=== PATIENT | male | born 1955 | race African-American/Black ===

== ENCOUNTER 2020-06-18 17:14 | Observation (INO) | payer BC ==
[2020-06-18 18:09] LABS: Blood Gas Oxyhemoglobin 89.8 % (94-97); Blood O2 Saturation 92.5 % (92-98.5)
[2020-06-18 18:36] LABS: Urine Blood Trace-intact (Negative); Urine Glucose 2+ (Negative); Urine Protein Negative (Negative); Urine Specific Gravity <=1.005 (1.005-1.030); Urine pH 5.5 (5.0-7.0)
[2020-06-18] MEDS ORDERED: NA CHLORIDE 0.9% 1,000 ML ONE ×2 (19:05→21:14)
[2020-06-18 19:36] LABS: Absolute Lymphocytes (CBC) 2.2 K/uL (0.7-4.9); Basophils % 0.6 % (0-1.3); Lymphocytes % 23.8 % (15.3-44.8); MPV 10.5 fL (7.6-11.3)
[2020-06-18 19:53] LABS: ALT/SGPT 21 U/L (12-78); AST/SGOT 16 U/L (15-37); Albumin 3.6 g/dL (3.4-5.0); Alkaline Phosphatase 112 U/L (45-117); BUN Blood Urea Nitrogen 21 mg/dL (7-18); Bicarbonate 27 mmol/L (21-32); Bilirubin Direct 0.2 mg/dL (0-0.2); Bilirubin Total 0.6 mg/dL (0.2-1.0); Lipase 361 U/L (73-393); Potassium 4.6 mmol/L (3.5-5.1); Protein, Total 8.2 g/dL (6.4-8.2); Sodium Level 127 mmol/L (136-145)
[2020-06-18 19:55] LABS: Glucose Level 878 mg/dL (74-106)
[2020-06-18] MEDS ORDERED: DIAZEPAM 10 MG/2 ML INJ SYRINGE ONE (20:42)
--- NOTE | 2020-06-18 20:43 | EDPHYS ---
Physician Documentation [facility] Name: Jocy Burton Age: 64 yrs Sex: Male : 1955 Arrival Date: 06/18/2020 Time: 17:18 Bed 18 Private MD: ED Physician aMri Garcia HPI: 06/18 17:45 This 64 yrs old Black Male presents to ER via Ambulatory with complaints of Urinary jmm Frequency. 17:45 The patient or guardian reports polyuria. Onset: The symptoms/episode began/occurred jmm gradually, 5 day(s) ago. Associated signs and symptoms: Pertinent positives:. Associated signs and symptoms: Pertinent negatives: shortness of breath, vomiting. Modifying factors: The patient symptoms are alleviated by nothing, the patient symptoms are aggravated by nothing. The patient has not experienced similar symptoms in the past. Historical: - Allergies: 17:33 No Known Allergies; ll1 - PMHx: 17:38 Hypertension; ll1 - PSHx: 17:38 hand sx; ll1 - Immunization history:: Flu vaccine is not up to date. - Social history:: Smoking status: unknown. ROS: 17:45 Constitutional: Negative for fever, chills, and weight loss, Cardiovascular: Negative jmm for chest pain, palpitations, and edema, Respiratory: Negative for shortness of breath, cough, wheezing, and pleuritic chest pain. 17:45 Neuro: Positive for weakness. 17:45 Endocrine: Positive for polyuria. 17:45 All other systems are negative. Exam: 17:45 Constitutional: This is a well developed, well nourished patient who is awake, alert, jmm and in no acute distress. Head/Face: atraumatic. Eyes: EOMI, no conjunctival erythema appreciated ENT: Moist Mucus Membranes Neck: Trachea midline, Supple Chest/axilla: Normal chest wall appearance and motion. Cardiovascular: Regular rate and rhythm. No edema appreciated Respiratory: Normal respirations, no respiratory distress appreciated Abdomen/GI: Non distended, soft Back: Normal ROM Skin: General appearance color normal MS/ Extremity: Moves all extremities, no obvious deformities appreciated, no edema noted to the lower extremities Neuro: Awake and alert, normal gait Psych: Behavior is normal, Mood is normal, Patient is cooperative and pleasant Vital Signs: 17:33 BP 170 / 104; Pulse 105; Resp 17; Temp 98.3; Pulse Ox 98% ; Weight 81.65 kg; Height 5 ll1 ft. 7 in. (170.18 cm); Pain 0/10; 19:30 BP 124 / 70; Pulse 97; Resp 16; Pulse Ox 96% on R/A; zb 20:41 BP 127 / 78; Pulse 97; Resp 14; Pulse Ox 99% on R/A; zb 22:20 BP 140 / 81; Pulse 100; Resp 18; Pulse Ox 95% on R/A; zb 23:42 BP 148 / 86; Pulse 97; Resp 16; Pulse Ox 98% on R/A; zb 17:33 Body Mass Index 28.19 (81.65 kg, 170.18 cm) ll1 MDM: 17:47 Patient medically screened. [facility] 20:40 Data reviewed: vital signs, nurses notes. Counseling: I had a detailed discussion with marilee the patient and/or guardian regarding: the historical points, exam findings, and any diagnostic results supporting the discharge/admit diagnosis, lab results, the need for outpatient follow up, to return to the emergency department if symptoms worsen or persist or if there are any questions or concerns that arise at home. ED course: Patient is alert and non toxic in appearance in the ED. I discussed the patient with ANDER Desai whom accepted the patient to Vicente Edwards's service. . 06/18 17:45 Order name: Basic Metabolic Panel [facility] 06/18 17:45 Order name: CBC with Diff [facility] 06/18 17:45 Order name: Hepatic Function [facility] 06/18 17:45 Order name: Lipase [facility] 06/18 17:46 Order name: Basic Metabolic Panel; Complete Time: 20:12 [facility] 06/18 17:46 Order name: CBC with Automated Diff; Complete Time: 20:20 [facility] 06/18 17:46 Order name: Liver (Hepatic) Function; Complete Time: 20:20 [facility] 06/18 17:46 Order name: Lipase; Complete Time: 20:20 [facility] 06/18 17:46 Order name: Acetone, Serum; Complete Time: 20:20 [facility] 06/18 17:47 Order name: ABG [facility] 06/18 17:47 Order name: ABG Arterial Blood Gas; Complete Time: 19:00 [facility] 06/18 17:55 Order name: Glucose, Ancillary Testing; Complete Time: 18:26 [facility] 06/18 18:36 Order name: Urine Dipstick-Ancillary; Complete Time: 19:00 [facility] 06/18 17:45 Order name: IV Saline Lock; Complete Time: 18:42 [facility] 06/18 17:45 Order name: Labs collected and sent; Complete Time: 18:42 [facility] 06/18 17:45 Order name: Urine Dipstick-Ancillary (obtain specimen); Complete Time: 18:43 [facility] 06/18 21:56 Order name: SARS-COV-2 RT PCR; Complete Time: 15:11 [facility] 06/18 22:01 Order name: Glucose, Ancillary Testing; Complete Time: 23:06 [facility] 06/18 23:22 Order name: Glucose, Ancillary Testing; Complete Time: 15:11 EDMS Administered Medications: 18:50 Drug: NS 0.9% 1000 ml Route: IV; Rate: 1 bolus; Site: left antecubital; zb 19:30 Follow up: Response: No adverse reaction; No change in condition; IV Status: Completed zb infusion; IV Intake: 1900ml 20:27 Drug: Valium (diazepam) 2 mg {Note: rass 0.} Route: IVP; Site: left antecubital; zb 22:38 Follow up: Response: No adverse reaction; No change in condition; Pain is decreased; zb RASS: Alert and Calm (0) 21:02 Drug: Insulin Regular Human 5 units {Co-Signature: rr5 (Vicente Noriega RN).} Route: IVP; zb Site: left antecubital; 23:40 Follow up: Response: No adverse reaction; Marked relief of symptoms; Blood sugar is zb lowered 21:05 Drug: NS 0.9% 1000 ml Route: IV; Rate: 1 bolus; Site: left antecubital; zb 22:43 Follow up: Response: No adverse reaction; Marked relief of symptoms; IV Status: zb Completed infusion; IV Intake: 1000ml 22:25 Drug: LanTUS 16 units Route: Sub-Q; Site: right lower abdomen; zb 06/19 00:20 Follow up: Response: No adverse reaction zb 06/18 22:25 Drug: Insulin Regular Human 5 units {Co-Signature: rr5 (Vicente Noriega RN).} Route: IVP; zb Site: left antecubital; 06/19 00:20 Follow up: Response: No adverse reaction; Blood sugar is lowered zb Disposition: 06/18/20 20:43 Hospitalization ordered by Vicente Edwards for Observation. Preliminary diagnosis are Hyperglycemia, unspecified, Hypo-osmolality and hyponatremia, Acute Kidney Injury. - Bed requested for Telemetry/MedSurg (observation). - Status is Observation. zb - Condition is Stable. - Problem is new. - Symptoms are unchanged. Addendum: 06/21/2020 15:41 Co-signature as Attending Physician, Mari Garcia MD. m a2 Signatures: Dispatcher [employer] EDSD Karla Askew RN RN mw Bobby Degroot PA PA [facility] John Hamilton, PBX INSTALLER-C PBX INSTALLER-[facility] Mari Garcia MD MD ma2 Reva Juárez RN RN ll1 Yeni Flynn RN RN zb Vicente Noriega RN rr5 Corrections: (The following items were deleted from the chart) 06/18 17:38 17:33 PSHx: None; ll1 ll1 17:38 17:33 Social history: Smoking status: Patient denies any tobacco usage or history of. 1 1 21:13 20:59 CORONAVIRUS+MR.LAB.BRZ ordered. [facility] EDSD 22:23 20:43 Hospitalization Ordered by Vicente Edwards MD for Observation. Preliminary mw diagnosis is Hyperglycemia, unspecified; Hypo-osmolality and hyponatremia; Acute Kidney Injury. Bed requested for Telemetry/MedSurg (observation). Status is Observation. Condition is Stable. Problem is new. Symptoms are unchanged. [facility] 23:44 22:23 06/18/2020 20:43 Hospitalization Ordered by Vicente Edwards MD for Observation. zb Preliminary diagnosis is Hyperglycemia, unspecified; Hypo-osmolality and hyponatremia; Acute Kidney Injury. Bed requested for Telemetry/MedSurg (observation). Status is Observation. Condition is Stable. Problem is new. Symptoms are unchanged. mw
--- NOTE | 2020-06-18 20:43 | ER ---
Nurse's Notes [facility] Name: Jocy Burton Age: 64 yrs Sex: Male : 1955 Arrival Date: 06/18/2020 Time: 17:18 Bed 18 Private MD: Diagnosis: Hyperglycemia, unspecified;Hypo-osmolality and hyponatremia;Acute Kidney Injury Presentation: 06/18 17:33 Chief complaint: Patient states: Frequent thirst and frequent urination for 5 days. No ll1 fever or pain. Coronavirus screen: Client denies travel out of the [place] in the last 14 days. At this time, the client does not indicate any symptoms associated with coronavirus-19. Ebola Screen: Patient denies travel to an Ebola-affected area in the 21 days before illness onset. Initial Sepsis Screen: Does the patient meet any 2 criteria? HR > 90 bpm. No. Patient's initial sepsis screen is negative. Does the patient have a suspected source of infection? Yes: Dysuria/Frequency/Urgency/UTI. Risk Assessment: Do you want to hurt yourself or someone else? Patient reports no desire to harm self or others. Onset of symptoms was June 14, 2020. 17:33 Method Of Arrival: Ambulatory ll1 17:33 Acuity: CINDY 2 ll1 17:42 Chief complaint: Patient states: Fingerstick reads HI. ll1 Historical: - Allergies: 17:33 No Known Allergies; ll1 - PMHx: 17:38 Hypertension; ll1 - PSHx: 17:38 hand sx; ll1 - Immunization history:: Flu vaccine is not up to date. - Social history:: Smoking status: unknown. Screenin:40 Abuse screen: Denies threats or abuse. Denies injuries from another. Nutritional zb screening: No deficits noted. Tuberculosis screening: No symptoms or risk factors identified. Fall Risk None identified. Assessment: 18:00 General: Appears in no apparent distress. comfortable, Behavior is calm, cooperative, zb appropriate for age, Reports fatigue for >3 days. Pain: Denies pain. Neuro: Level of Consciousness is awake, alert, obeys commands, Oriented to person, place, time, situation. Cardiovascular: Capillary refill < 3 seconds Patient's skin is warm and dry. Pulses are all present. Respiratory: Airway is patent Respiratory effort is even, unlabored, Respiratory pattern is regular, symmetrical. GI: Abdomen is flat, Bowel sounds present X 4 quads. Reports cramping, Patient currently denies intolerance of fluids, intolerance of food, nausea, vomiting. : Reports urgency, urinary frequency. Derm: Skin is intact, Skin is dry, Skin is normal, Skin temperature is warm. Musculoskeletal: Range of motion: intact in all extremities. 19:56 Reassessment: glucose 878 abdon from laboratory called, ED provider aware. rr5 20:10 Reassessment: Patient appears in no apparent distress at this time. Patient and/or zb family updated on plan of care and expected duration. Pain level reassessed. Patient is alert, oriented x 3, equal unlabored respirations, skin warm/dry/pink. ECP at bedside. 21:00 Reassessment: Patient appears in no apparent distress at this time. Patient and/or zb family updated on plan of care and expected duration. Pain level reassessed. Patient is alert, oriented x 3, equal unlabored respirations, skin warm/dry/pink. 22:00 Reassessment: Patient appears in no apparent distress at this time. Patient and/or zb family updated on plan of care and expected duration. Pain level reassessed. Patient is alert, oriented x 3, equal unlabored respirations, skin warm/dry/pink. IV fluid infusing. 23:25 Reassessment: Patient appears in no apparent distress at this time. Patient and/or zb family updated on plan of care and expected duration. Pain level reassessed. Patient is alert, oriented x 3, equal unlabored respirations, skin warm/dry/pink. current sugar 389 notified hospitalist. Vital Signs: 17:33 BP 170 / 104; Pulse 105; Resp 17; Temp 98.3; Pulse Ox 98% ; Weight 81.65 kg; Height 5 ll1 ft. 7 in. (170.18 cm); Pain 0/10; 19:30 BP 124 / 70; Pulse 97; Resp 16; Pulse Ox 96% on R/A; zb 20:41 BP 127 / 78; Pulse 97; Resp 14; Pulse Ox 99% on R/A; zb 22:20 BP 140 / 81; Pulse 100; Resp 18; Pulse Ox 95% on R/A; zb 23:42 BP 148 / 86; Pulse 97; Resp 16; Pulse Ox 98% on R/A; zb 17:33 Body Mass Index 28.19 (81.65 kg, 170.18 cm) ll1 ED Course: 17:18 Patient arrived in ED. ds1 17:33 Arm band placed on. ll1 17:37 Triage completed. 1 17:45 Bobby Degroot PA is PHCP. [facility] 17:45 Mari Garcia MD is Attending Physician. [facility] 17:56 Yeni Flynn RN is Primary Nurse. zb 18:37 Inserted saline lock: 20 gauge in left antecubital area, using aseptic technique. Blood dh4 collected. 20:40 Patient has correct armband on for positive identification. Placed in gown. Bed in low zb position. Call light in reach. Side rails up X 1. Pulse ox on. NIBP on. Door closed. Noise minimized. 20:42 Vicente Edwards MD is Hospitalizing Provider. [facility] 23:40 No provider procedures requiring assistance completed. Patient admitted, IV remains in zb place. Administered Medications: 18:50 Drug: NS 0.9% 1000 ml Route: IV; Rate: 1 bolus; Site: left antecubital; zb 19:30 Follow up: Response: No adverse reaction; No change in condition; IV Status: Completed zb infusion; IV Intake: 1900ml 20:27 Drug: Valium (diazepam) 2 mg {Note: rass 0.} Route: IVP; Site: left antecubital; zb 22:38 Follow up: Response: No adverse reaction; No change in condition; Pain is decreased; zb RASS: Alert and Calm (0) 21:02 Drug: Insulin Regular Human 5 units {Co-Signature: rr5 (Vicente Noriega RN).} Route: IVP; zb Site: left antecubital; 23:40 Follow up: Response: No adverse reaction; Marked relief of symptoms; Blood sugar is zb lowered 21:05 Drug: NS 0.9% 1000 ml Route: IV; Rate: 1 bolus; Site: left antecubital; zb 22:43 Follow up: Response: No adverse reaction; Marked relief of symptoms; IV Status: zb Completed infusion; IV Intake: 1000ml 22:25 Drug: LanTUS 16 units Route: Sub-Q; Site: right lower abdomen; zb 06/19 00:20 Follow up: Response: No adverse reaction zb 06/18 22:25 Drug: Insulin Regular Human 5 units {Co-Signature: rr5 (Vicente Noriega RN).} Route: IVP; zb Site: left antecubital; 06/19 00:20 Follow up: Response: No adverse reaction; Blood sugar is lowered zb Intake: 06/18 19:30 IV: 1900ml; Total: 1900ml. zb 22:43 IV: 1000ml; Total: 2900ml. zb Outcome: 20:43 Decision to Hospitalize by Provider. [facility] 23:40 Admitted to Med/surg accompanied by tech, room 217, with chart, Report called to erik salazar RN 23:40 Condition: stable 23:40 Instructed on the need for admit, Demonstrated understanding of instructions. 23:44 Patient left the ED. zb Signatures: Bobby Degroot PA PA jmm Sanford, Demi ds1 Vicente Noriega, RN RN rr5 Landry Leija 4 Reva Juárez RN RN ll1 Yeni Flynn RN RN erik Noriega RN rr5 Corrections: (The following items were deleted from the chart) 17:38 17:33 PSHx: None; ll1 ll1 17:38 17:33 Social history: Smoking status: Patient denies any tobacco usage or history of. ll1 ll1 17:42 17:33 Acuity: CINDY 3 ll1 ll1 23:40 22:38 Response: No adverse reaction; Marked relief of symptoms; Pain is decreased zb zb
[2020-06-18] MEDS ORDERED: INSULIN -REGULAR HUMAN 50 UNIT/0.5 ML ML ONE ×2 (21:14→23:32)
--- NOTE | 2020-06-18 22:02 | P.HP ---
Certification for Inpatient Patient admitted to: Observation With expected LOS: <2 Midnights Patient will require the following post-hospital care: None Practitioner: I am a practitioner with admitting privileges, knowledge of patient current condition, hospital course, and medical plan of care. Services: Services provided to patient in accordance with Admission requirements found in Title 42 Section 412.3 of the Code of Federal Regulations <John Hamilton - Last Filed: 06/18/20 22:04> Patient History Date of Service: 06/18/20 Primary Care Provider: Dr. Molina, Dr. Arevalo Reason for admission: Hyperglycemia History of Present Illness: 64-year-old male with history of hypertension presents emergency department for polyuria. Patient reports that the course of the last 5 days he has had polyphasia, polyuria, polydipsia, no known history diabetes. Patient's initial valuation emergency department significant for glucose 178 creatinine 1.86 GFR 45 sodium 127 but corrected sodium 139 ABG without acidosis pH 7.4 CBC within normal limits. Urine significant for for 2+ glucose, specific gravity less than 1.005. Patient was given 2 L normal saline bolus in emergency department and 5 units IV insulin, repeat blood glucose level pending. ED provider wishes to admit patient for new onset diabetes mellitus type 2 with hyperglycemia without DKA. - Past Medical/Surgical History Diabetic: No -: kidney stones -: Hypertension -: I/D of middle finger right hand Psychosocial/ Personal History: Patient works as a maintenance and utilities supervisor at the [employer] - Family History Father -: Cancer Brother -: Diabetes, Cancer - Social History Smoking Status: Current some day smoker Smoking therapy provided: Yes Alcohol use: No CD- Drugs: No Caffeine use: Yes Place of Residence: Home <John Hamilton - Last Filed: 06/18/20 22:04> Date of Service: 06/19/20 <Vicente Edwards - Last Filed: 06/19/20 18:18> Allergies No Known Allergies Allergy (Verified 05/13/13 10:37) Home Medications: Allopurinol 100 mg PO DAILY 06/18/20 Amlodipine [Norvasc*] 10 mg PO DAILY 06/18/20 Atorvastatin Calcium 10 mg PO DAILY 06/18/20 Metoprolol Tartrate [Lopressor*] 100 mg PO DAILY 06/18/20 Blood Sugar Diagnostic [Test Strips] 1 each [facility] ACHS #120 strip 06/19/20 Blood-Glucose Meter [Accu-Chek Guide Monitor System] 1 each ACHS #1 each 06/19/20 Insulin Detemir [Levemir Flextouch] 20 unit SQ BEDTIME 30 Days #1 insuln.pen 06/19/20 Metformin HCl [Glucophage*] 500 mg PO BIDWM 30 Days #60 tab 06/19/20 Review of Systems 10-point ROS is otherwise unremarkable General: Weakness, Malaise, Other (Polydipsia, polyphasia, polyuria) <John Hamilton - Last Filed: 06/18/20 22:04> Physical Examination - Physical Exam General: Alert, In no apparent distress HEENT: Atraumatic, PERRLA, Other (Mucous membranes dry), EOMI, Sclerae nonicteric Neck: Supple, 2+ carotid pulse no bruit, No LAD, Without JVD or thyroid abnormality Respiratory: Clear to auscultation bilaterally, Normal air movement Cardiovascular: Regular rate/rhythm, Normal S1 S2 Capillary refill: <2 Seconds Gastrointestinal: Normal bowel sounds, No tenderness Musculoskeletal: No tenderness Integumentary: No rashes Neurological: Normal speech, Normal strength at 5/5 x4 extr, Normal tone, Normal affect - Studies Laboratory Data (last 24 hrs) 06/18/20 18:22: WBC 9.20, Hgb 14.4, Hct 42.0, Plt Count 225 06/18/20 18:22: Sodium 127 L, Potassium 4.6, BUN 21 H, Creatinine 1.86 H, Glucose 878 H*, Total Bilirubin 0.6, AST 16, ALT 21, Alkaline Phosphatase 112, Lipase 361 <John Hamilton - Last Filed: 06/18/20 22:04> - Studies Laboratory Data (last 24 hrs) 06/18/20 18:22: WBC 9.20, Hgb 14.4, Hct 42.0, Plt Count 225 06/18/20 18:22: Sodium 127 L, Potassium 4.6, BUN 21 H, Creatinine 1.86 H, Glucose 878 H*, Total Bilirubin 0.6, AST 16, ALT 21, Alkaline Phosphatase 112, Lipase 361 <Vicente Edwards - Last Filed: 06/19/20 18:18> Assessment and Plan - Plan Assessment New onset diabetes mellitus type 2 with hyperglycemia without DKA Hypertension RICKIE Plan New onset diabetes mellitus type 2 with hyperglycemia without DKA: Anion gap is 9, ABG with pH of 7.4, no DKA at this time, patient tolerating p.o., appears nontoxic. Patient does appear very dry patient was pseudohyponatremia corrected sodium 139. Continue with aggressive IV fluids overnight, will obtain A1c with morning labs, sliding scale insulin, dietitian consult, patient will likely need to be discharged on long-acting insulin and possibly additional oral agent. DVT prophylaxis heparin 5000 subcutaneous twice daily. Hypertension: Continue home meds RICKIE: Mild a KI noted, continue with IV fluids, recheck morning labs, consult nephrology as necessary. Discharge Plan: Home Plan to discharge in: 24 Hours - Advance Directives Does patient have a Living Will: No Does patient have a Durable POA for Healthcare: No - Code Status/Comfort Care Code Status Assessed: Yes Critical Care: No Time Spent Managing Pts Care (In Minutes): 55 <John Hamilton - Last Filed: 06/18/20 22:04> - Plan Plan of care reviewed as noted above New onset diabetes mellitus type 2, hyperglycemic with the DKA Pseudohyponatremia A1c ordered Anticipate discharge home in next 24 hr, likely need insulin <Vicente Edwards - Last Filed: 06/19/20 18:18>
[2020-06-18] MEDS ORDERED: INSULIN GLARGINE 100 UNITS/ML SQ ONE (23:30)
[2020-06-18] MEDS ORDERED: D50W 25 GM/50 ML SYRINGE IV PRN (23:48)
[2020-06-18] MEDS ORDERED: ACETAMINOPHEN 500 MG TAB PO PRN (23:48)
[2020-06-18] MEDS ORDERED: ONDANSETRON 4 MG/2 ML VIAL IV PRN (23:48)
[2020-06-18] MEDS ORDERED: GLUCAGON 1 MG/VIAL IM PRN (23:48)
[2020-06-19 00:18] VITALS: BMI 29.0
[2020-06-19] MEDS: NA CHLORIDE 0.9% 1,000 ML IV SCH ×2 (00:23→07:48)
[2020-06-19 00:38] VITALS: O2SAT 98
[2020-06-19] MEDS ORDERED: INSULIN -REGULAR HUMAN 50 UNIT/0.5 ML ML SQ ONE (02:30)
[2020-06-19 03:34] LABS: Urine Appearance CLEAR (Clear); Urine Bilirubin NEGATIVE (Negative); Urine Blood NEGATIVE (Negative); Urine Color YELLOW (Yellow); Urine Glucose 3+ (Negative); Urine Protein NEGATIVE (Negative); Urine Specific Gravity >=1.030 (1.005-1.030)
[2020-06-19 03:50] LABS: Urine Microscopic Reflex NO UMIC
[2020-06-19 04:11] LABS: Absolute Lymphocytes (CBC) 2.5 K/uL (0.7-4.9); Basophils % 0.7 % (0-1.3); Hematocrit 37.8 % (39.6-49.0); MPV 9.4 fL (7.6-11.3); RBC Red Blood Cell Count 4.88 M/uL (4.33-5.43)
[2020-06-19 04:35] LABS: Bilirubin Total 0.6 mg/dL (0.2-1.0); Magnesium 2.3 mg/dL (1.8-2.4); Potassium 3.8 mmol/L (3.5-5.1); Protein, Total 6.9 g/dL (6.4-8.2); Thyroid Stimulating Hormone 1.04 uIU/mL (0.360-3.740)
[2020-06-19] MEDS ORDERED: POTASSIUM 25 MEQ EFFERV TAB PO ONE (06:30)
[2020-06-19] MEDS ORDERED: ENOXAPARIN 40 MG/0.4 ML SQ SCH (09:00)
[2020-06-19] MEDS: INSULIN -REGULAR HUMAN 50 UNIT/0.5 ML ML SQ SCH ×2 (09:49→12:16)
[2020-06-19 13:10] VITALS: BP 147/97; TEMP 97.6
[2020-06-19] MEDS ORDERED: D50W 25 GM/50 ML VIAL IV PRN (14:00)
--- NOTE | 2020-06-19 14:43 | P.DS ---
Admission Date: 06/18/20 Discharge Date: 06/19/20 Primary Care Provider: Dr. Molina, Dr. Arevalo Disposition: ROUTINE DISCHARGE Discharge Condition: GOOD Reason for Admission: Hyperglycemia Brief History of Present Illness: 64-year-old male with history of hypertension presents emergency department for polyuria. Patient reports that the course of the last 5 days he has had polyphasia, polyuria, polydipsia, no known history diabetes. Patient's initial valuation emergency department significant for glucose 178 creatinine 1.86 GFR 45 sodium 127 but corrected sodium 139 ABG without acidosis pH 7.4 CBC within normal limits. Urine significant for for 2+ glucose, specific gravity less than 1.005. Patient was given 2 L normal saline bolus in emergency department and 5 units IV insulin, repeat blood glucose level pending. ED provider wishes to admit patient for new onset diabetes mellitus type 2 with hyperglycemia without DKA. Hospital Course: Patient was started on insulin sliding scale and had improvement of his hyperglycemia. He is given normal saline IV fluid and had improvement/resolution of his hyponatremia from 127 to 142 over night. His hem oglobin A1c was 11.9. He was otherwise feeling well. He was discharged on Levemir 20 units at bedtime, and metformin 500 mg b.i.d.. He was advised to check his glucose at least twice a day and keep a log. He is to follow up with his PCP in the next 3-5 days. Vital Signs/Physical Exam: Physical Exam General: Alert, In no apparent distress HEENT: sclera anicteric, normal conjunctiva Respiratory: Clear to auscultation bilaterally, Normal air movement Cardiovascular: Regular rate/rhythm, Normal S1 S2 Capillary refill: <2 Seconds Gastrointestinal: Normal bowel sounds, No tenderness Musculoskeletal: No tenderness Integumentary: No rashes Neurological: Normal speech, Normal strength at 5/5 x4 extr, Normal tone, Normal affect Temp Pulse Resp BP Pulse Ox 97.6 F 104 H 18 147/97 H 98 06/19/20 12:00 06/19/20 12:00 06/19/20 12:00 06/19/20 12:00 06/19/20 12:00 Laboratory Data at Discharge: WBC 9.60 K/uL (4.3-10.9) 06/19/20 03:57 Hgb 13.7 g/dL (13.6-17.9) 06/19/20 03:57 Hct 37.8 % (39.6-49.0) L 06/19/20 03:57 Plt Count 209 K/uL (152-406) 06/19/20 03:57 Sodium 142 mmol/L (136-145) 06/19/20 03:57 Potassium 3.8 mmol/L (3.5-5.1) 06/19/20 03:57 BUN 13 mg/dL (7-18) 06/19/20 03:57 Creatinine 1.21 mg/dL (0.55-1.3) 06/19/20 03:57 Glucose 268 mg/dL (74-106) H 06/19/20 03:57 Magnesium 2.3 mg/dL (1.8-2.4) 06/19/20 03:57 Total Bilirubin 0.6 mg/dL (0.2-1.0) 06/19/20 03:57 AST 19 U/L (15-37) 06/19/20 03:57 ALT 18 U/L (12-78) 06/19/20 03:57 Alkaline Phosphatase 91 U/L (45-117) 06/19/20 03:57 Triglycerides 183 mg/dL (<150) H 06/19/20 03:57 Cholesterol 103 mg/dL (<200) 06/19/20 03:57 HDL Cholesterol 24 mg/dL (40-60) L 06/19/20 03:57 Cholesterol/HDL Ratio 4.29 06/19/20 03:57 Lipase 361 U/L (73-393) 06/18/20 18:22 Home Medications: Allopurinol 100 mg PO DAILY 06/18/20 Amlodipine [Norvasc*] 10 mg PO DAILY 06/18/20 Atorvastatin Calcium 10 mg PO DAILY 06/18/20 Metoprolol Tartrate [Lopressor*] 100 mg PO DAILY 06/18/20 Blood Sugar Diagnostic [Test Strips] 1 each [facility] #120 strip 06/19/20 Blood-Glucose Meter [Accu-Chek Guide Monitor System] 1 each [facility] #1 each 05/22 04/11 Insulin Detemir [Levemir Flextouch] 20 unit SQ BEDTIME 30 Days #1 insuln.pen 06/19/20 Metformin HCl [Glucophage*] 500 mg PO BIDWM 30 Days #60 tab 06/19/20 New Medications: Blood-Glucose Meter [Accu-Chek Guide Monitor System] 1 each ACHS #1 each Metformin HCl [Glucophage*] 500 mg PO BIDWM 30 Days #60 tab Insulin Detemir [Levemir Flextouch] 20 unit SQ BEDTIME 30 Days #1 insuln.pen Blood Sugar Diagnostic [Test Strips] 1 each ACHS #120 strip Diet: ADA Activity: Ad oly Followup: NONE,NONE [Primary Care Provider] - Time spent managing pt's care (in minutes): 35
[2020-06-19] MEDS ORDERED: INSULIN GLARGINE 100 UNITS/ML SQ SCH (21:00)
== END 2020-06-19 16:14 | disposition home or self-care (01) ==
LOC: ER 17:14 → ERHOLD 21:11 → 2ND 23:25
PROVIDERS: ADMIT Hospitalist; ATTEND Hospitalist
DX: E11.65 Type 2 diabetes mellitus with hyperglycemia (principal); E87.1 Hypo-osmolality and hyponatremia; N17.9 Acute kidney failure, unspecified; I10 Essential (primary) hypertension; F17.200 Nicotine dependence, unspecified, uncomplicated; Z20.822 Contact with and (suspected) exposure to COVID-19
CPT/HCPCS: 96361; 85025 ×2; 80048; 36415; 82010; 83735; 80061; 82947 ×7; 80076; 84443; 81003 ×2; 83036; 84439; 83690; 80053; 83930; 82805; 96375; 96372; 96374; 99285; U0003; J1650; J3360; J7030 ×3; G0378; J1815

== ENCOUNTER 2021-06-27 07:41 | Emergency (ER) | payer BC ==
--- NOTE | 2021-06-27 08:35 | EDPHYS ---
Physician Documentation [facility] Name: Jocy Burton Age: 65 yrs Sex: Male : 1955 Arrival Date: 06/27/2021 Time: 07:44 Bed 15 Private MD: CORRIE Physician Yaw Haile HPI: 06/27 08:29 This 65 yrs old Black Male presents to ER via Ambulatory with complaints of Cyst. miranda 08:29 The patient presents with cellulitis of the left scapular area, the patient presents miranda with a swollen area of the left scapular area. Description: The affected area is moderate sized, localized, erythematous, raised. Onset: The symptoms/episode began/occurred 6 month(s) ago. Possible cause(s): inflamed sebaceous cyst. Associated signs and symptoms: The patient has no apparent associated signs or symptoms. Modifying factors: the symptoms are alleviated by remaining still, the symptoms are aggravated by walking, pressure. Severity of symptoms: At their worst the symptoms were mild, in the emergency department the symptoms are unchanged. The patient has experienced similar episodes in the past, a few times. Historical: - Allergies: 07:54 No Known Allergies; ss - PMHx: 07:54 Hypertension; ss - Immunization history:: Client reports receiving the 2nd dose of the Covid vaccine. - Social history:: Smoking status: Patient reports the use of cigarette tobacco products, smokes one-half pack cigarettes per day. - Family history:: not pertinent. ROS: 08:29 Constitutional: Negative for fever, chills, and weight loss, Eyes: Negative for injury, miranda pain, redness, and discharge, ENT: Negative for injury, pain, and discharge, Neck: Negative for injury, pain, and swelling, Cardiovascular: Negative for chest pain, palpitations, and edema, Respiratory: Negative for shortness of breath, cough, wheezing, and pleuritic chest pain, Abdomen/GI: Negative for abdominal pain, nausea, vomiting, diarrhea, and constipation, Back: Negative for injury and pain, : Negative for injury, bleeding, discharge, and swelling, MS/Extremity: Negative for injury and deformity, Neuro: Negative for headache, weakness, numbness, tingling, and seizure, Psych: Negative for depression, anxiety, suicide ideation, homicidal ideation, and hallucinations, Allergy/Immunology: Negative for hives, rash, and allergies, Endocrine: Negative for neck swelling, polydipsia, polyuria, polyphagia, and marked weight changes, Hematologic/Lymphatic: Negative for swollen nodes, abnormal bleeding, and unusual bruising. 08:29 Skin: Positive for cellulitis, swelling, of the left scapular area. Exam: 08:29 Constitutional: This is a well developed, well nourished patient who is awake, alert, miranda and in no acute distress. Head/Face: Normocephalic, atraumatic. Eyes: Pupils equal round and reactive to light, extra-ocular motions intact. Lids and lashes normal. Conjunctiva and sclera are non-icteric and not injected. Cornea within normal limits. Periorbital areas with no swelling, redness, or edema. ENT: Nares patent. No nasal discharge, no septal abnormalities noted. Tympanic membranes are normal and external auditory canals are clear. Oropharynx with no redness, swelling, or masses, exudates, or evidence of obstruction, uvula midline. Mucous membranes moist. Neck: Trachea midline, no thyromegaly or masses palpated, and no cervical lymphadenopathy. Supple, full range of motion without nuchal rigidity, or vertebral point tenderness. No Meningismus. Chest/axilla: Normal chest wall appearance and motion. Nontender with no deformity. No lesions are appreciated. Cardiovascular: Regular rate and rhythm with a normal S1 and S2. No gallops, murmurs, or rubs. Normal PMI, no JVD. No pulse deficits. Respiratory: Lungs have equal breath sounds bilaterally, clear to auscultation and percussion. No rales, rhonchi or wheezes noted. No increased work of breathing, no retractions or nasal flaring. Abdomen/GI: Soft, non-tender, with normal bowel sounds. No distension or tympany. No guarding or rebound. No evidence of tenderness throughout. Back: No spinal tenderness. No costovertebral tenderness. Full range of motion. Male : Normal genitalia with no discharge or lesions. MS/ Extremity: Pulses equal, no cyanosis. Neurovascular intact. Full, normal range of motion. Neuro: Awake and alert, GCS 15, oriented to person, place, time, and situation. Cranial nerves II-XII grossly intact. Motor strength 5/5 in all extremities. Sensory grossly intact. Cerebellar exam normal. Normal gait. Psych: Awake, alert, with orientation to person, place and time. Behavior, mood, and affect are within normal limits. 08:29 Skin: cellulitis, that is mild, induration, that is mild is noted. Vital Signs: 07:50 BP 172 / 91; Pulse 71; Resp 16; Temp 97.4(O); Pulse Ox 98% on R/A; ss MDM: 07:52 Patient medically screened. miranda 08:33 Differential diagnosis: abscess, cellulitis. Data reviewed: vital signs, nurses notes. miranda Data interpreted: shelter monitor: rate is 71 beats/min, rhythm is regular, Pulse oximetry: is not applicable for this patient encounter. on room air. Test interpretation: by ED physician or midlevel provider:. Counseling: I had a detailed discussion with the patient and/or guardian regarding: the historical points, exam findings, and any diagnostic results supporting the discharge/admit diagnosis, the need for outpatient follow up, for definitive care, a general surgeon. Administered Medications: 08:49 Drug: Bactrim (trimethoprim-sulfamethoxazole) (160 mg-800 mg (DS) 1 tablet Route: PO; ww 08:49 Drug: Doxycycline 200 mg Route: PO; ww Disposition Summary: 06/27/21 08:35 Discharge Ordered Location: Home miranda Problem: new miranda Symptoms: have improved miranda Condition: Stable miranda Diagnosis - Sebaceous cyst - infected miranda - Cellulitis of back [any part except buttock] miranda Followup: miranda - With: Rafy Pisano MD - When: 2 - 3 days - Reason: Recheck today's complaints, Re-evaluation by your physician Discharge Instructions: - Discharge Summary Sheet miranda - Cellulitis, Adult miranda - Cellulitis, Adult, [id number] miranda - Epidermal Cyst, [id number] miranda - Epidermal Cyst miranda Forms: - Medication Reconciliation Form miranda - Thank You Letter miranda - Antibiotic Education miranda - Prescription Opioid Use miranda Prescriptions: - Doxycycline Hyclate 100 mg Oral Tablet - take 1 tablet by ORAL route every 12 hours; 20 tablet; Refills: 0, Product miranda Selection Permitted - Bactrim DS 800-160 mg Oral Tablet - take 1 tablet by ORAL route every 12 hours for 10 days; 20 tablet; Refills: 0, miranda Product Selection Permitted - Tylenol-Codeine #3 300 mg-30 mg Oral - take 2 tablet by ORAL route every 6 hours; 24 tablet; Refills: 0, Product miranda Selection Permitted Signatures: Yaw Haile MD MD cha Smirch, Shelby RN RN Veda Quezada RN RN ww
--- NOTE | 2021-06-27 08:35 | ER ---
Nurse's Notes [facility] Name: Jocy Burton Age: 65 yrs Sex: Male : 1955 Arrival Date: 06/27/2021 Time: 07:44 Bed 15 Private MD: Diagnosis: Sebaceous cyst-infected;Cellulitis of back [any part except buttock] Presentation: 06/27 07:50 Chief complaint: Patient states: cyst on back that began 2-3 weeks ago. PT denies ss fever, but reports that the area is becoming more tender. Coronavirus screen: Client denies travel out of the [place] in the last 14 days. Ebola Screen: Patient denies exposure to infectious person. Patient denies travel to an Ebola-affected area in the 21 days before illness onset. Initial Sepsis Screen: Does the patient meet any 2 criteria? No. Patient's initial sepsis screen is negative. Does the patient have a suspected source of infection? No. Patient's initial sepsis screen is negative. Risk Assessment: Do you want to hurt yourself or someone else? Patient reports no desire to harm self or others. Onset of symptoms was June 27, 2021. 07:50 Method Of Arrival: Ambulatory ss 07:50 Acuity: CINDY 4 ss Historical: - Allergies: 07:54 No Known Allergies; ss - PMHx: 07:54 Hypertension; ss - Immunization history:: Client reports receiving the 2nd dose of the Covid vaccine. - Social history:: Smoking status: Patient reports the use of cigarette tobacco products, smokes one-half pack cigarettes per day. - Family history:: not pertinent. Screenin:12 Abuse screen: Denies threats or abuse. Denies injuries from another. Nutritional ww screening: No deficits noted. Tuberculosis screening: No symptoms or risk factors identified. Fall Risk None identified. Assessment: 08:11 General: Appears in no apparent distress. comfortable, Behavior is calm, cooperative. ww Pain: Complains of pain in left subscapular area. Neuro: Level of Consciousness is awake, alert, obeys commands, Oriented to person, place, time, situation, Moves all extremities. Speech is normal. Cardiovascular: Capillary refill < 3 seconds Patient's skin is warm and dry. Respiratory: Airway is patent Respiratory effort is even, unlabored, Respiratory pattern is regular, symmetrical. GI: No signs and/or symptoms were reported involving the gastrointestinal system. : No signs and/or symptoms were reported regarding the genitourinary system. EENT: No signs and/or symptoms were reported regarding the EENT system. Derm: Skin is healthy with good turgor, Abscess located on left subscapular area is golf ball sized, has no drainage, is raised. Vital Signs: 07:50 BP 172 / 91; Pulse 71; Resp 16; Temp 97.4(O); Pulse Ox 98% on R/A; ss ED Course: 07:44 Patient arrived in ED. ds1 07:52 Yaw Haile MD is Attending Physician. [facility] 07:53 Triage completed. ss 07:54 Arm band placed on right wrist. 08:11 Veda Jaffe, RN is Primary Nurse. ww 08:12 Patient has correct armband on for positive identification. Placed in gown. Bed in low ww position. Call light in reach. Side rails up X 1. 08:34 Rafy Pisano MD is Referral Physician. [facility] 09:41 No provider procedures requiring assistance completed. Patient did not have IV access ww during this emergency room visit. Administered Medications: 08:49 Drug: Bactrim (trimethoprim-sulfamethoxazole) (160 mg-800 mg (DS) 1 tablet Route: PO; ww 08:49 Drug: Doxycycline 200 mg Route: PO; ww Outcome: 08:35 Discharge ordered by . [facility] 09:41 Discharged to home ambulatory, patient going to Dr. Monroy office on Wednesday ww 09:41 Condition: stable 09:41 Discharge instructions given to patient, Instructed on discharge instructions, follow up and referral plans. medication usage, safety practices, Demonstrated understanding of instructions, follow-up care, medications, Prescriptions given X 3. 09:42 Patient left the ED. ww Signatures: Yaw Haile MD MD cha Sanford, Demi ds1 Diana Yates RN RN Veda Jaffe RN RN
[2021-06-27] MEDS ORDERED: SMZ./TMP. 800/160 MG TABLET ONE (08:51)
[2021-06-27] MEDS ORDERED: DOXYCYCLINE 100 MG CAP PO ONE (08:51)
[2021-06-27 11:30] VITALS: BP 172/91; TEMP 97.4; O2SAT 98
== END 2021-06-27 09:42 | disposition home or self-care (01) ==
LOC: ER 07:41
DX: L03.312 Cellulitis of back [any part except buttock and flank] (principal); L72.3 Sebaceous cyst; I10 Essential (primary) hypertension; F17.210 Nicotine dependence, cigarettes, uncomplicated
CPT/HCPCS: 99283